=== PATIENT | female | born 1995 | race Caucasian/White ===

== ENCOUNTER 2021-05-22 23:41 | Emergency (ER) | payer MEDICAID, OTHER ==
[~2021-05-22] VITALS: Ht 162.6 cm; Wt 65.8 kg
--- NOTE | 2021-05-23 00:21 | NUR ---
DR. CACERES AT BEDSIDE, MSE IN PROGRESS.
[2021-05-23] MEDS ORDERED: diphenhydrAMINE 50 MG/1 ML VIAL IV ONE (00:30)
[2021-05-23] MEDS ORDERED: KETOROLAC TROMETHAMINE 30 MG INJ IVP ONE (00:30)
[2021-05-23] MEDS ORDERED: IV NS 1000 ML 1,000 ML IV ONE (00:30)
[2021-05-23] MEDS ORDERED: METOCLOPRAMIDE HCL 10 MG/2 ML VIAL IV ONE (00:30)
[2021-05-23] MEDS ORDERED: diphenhydrAMINE 50 MG/1 ML VIAL ONE (00:43)
[2021-05-23] MEDS ORDERED: METOCLOPRAMIDE HCL 10 MG/2 ML VIAL ONE (00:43)
[2021-05-23] MEDS ORDERED: KETOROLAC TROMETHAMINE 30 MG INJ ONE (00:43)
[2021-05-23 00:49] LABS: *URINE HCG, QUAL NEGATIVE (NEGATIVE)
[2021-05-23] MEDS ORDERED: NAPR-1164 PO (01:41)
[2021-05-23] MEDS ORDERED: SUMA100T16 PO (01:41)
[2021-05-23] MEDS ORDERED: PROC-11 PO (01:41)
--- NOTE | 2021-05-23 02:06 | NUR ---
Patient discharged to home in stable condition. Written and verbal after care instructions given. Patient verbalizes understanding of instructions. Stressed follow up or return to ER for worsening s/s. Steady gait, no changes in LOC. No SOB or labored breathing. Denied n/v/d. No headache or dizziness.
[2021-05-23 02:19] VITALS: BP 127/76
== END 2021-05-23 02:19 | disposition home or self-care (01) ==
LOC: ER 23:44
DX: G43.909 Migraine, unspecified, not intractable, without status migrainosus (principal); U07.1 COVID-19
CPT/HCPCS: 84703; 87426; 96361; 96374; 96375; 99284; J1200; J1885; J2765; A4663; J7030

== ENCOUNTER 2024-08-26 02:42 | Emergency (ER) | payer SELFPAY ==
[~2024-08-26] VITALS: Ht 165.1 cm; Wt 59.0 kg
[~2024-08-26 02:42] MED LIST: NAPR-1164 PO; PROC-11 PO; SUMA100T16 PO
[2024-08-26] MEDS ORDERED: KETOROLAC TROMETHAMINE 30 MG INJ ONE (03:17)
[2024-08-26] MEDS: KETOROLAC TROMETHAMINE 30 MG INJ IM ONE (03:27)
[2024-08-26 03:38] LABS: *BILIRUBIN,URIN 1+ (NEGATIVE); *BLOOD, URINE 2+ (NEGATIVE); *CLARITY,URINE CLEAR (CLEAR); *COLOR,URINE YELLOW (YELLOW); *KETONES,URINE 1+ (NEGATIVE); *PROTEIN,URINE TRACE (NEGATIVE); *UROBILINOGEN,URINE 0.2 E.U./dl (NORMAL); LEUKOCYTE ESTERASE ,URINE NEGATIVE (NEGATIVE); NITRITE, URINE NEGATIVE (NEGATIVE); UGLUCOSE NEGATIVE (NEGATIVE)
[2024-08-26 03:43] LABS: *URINE HCG, QUAL NEGATIVE (NEGATIVE)
[2024-08-26 03:52] LABS: WBC,URINE 0-3 /HPF (0-3)
[2024-08-26 03:53] LABS: BACTERIA,URINE FEW /HPF (NONE SEEN); MUCUS,URINE FEW /LPF (0-FEW); SQUAMOUS EPITHELIAL CELL,UR FEW /HPF (NONE SEEN)
[2024-08-26 04:03] LABS: *AMPHETAMINE, URINE NEGATIVE (NEGATIVE); *BARBITURATE, URINE NEGATIVE (NEGATIVE); *BENZODIAZEPINE, URINE NEGATIVE (NEGATIVE); *CANNABINOID, URINE POSITIVE (NEGATIVE); *COCCAINE, URINE NEGATIVE (NEGATIVE); *OPIATE, URINE NEGATIVE (NEGATIVE); *PHENCYCLIDINE SCREEN,URINE NEGATIVE (NEGATIVE); FENTANYL, URINE NEGATIVE (NEGATIVE)
[2024-08-26] MEDS ORDERED: CYCLOBENZAPRINE HCL 10 MG TABLET ONE (06:27)
[2024-08-26] MEDS: CYCLOBENZAPRINE HCL 10 MG TABLET PO ONE (06:30)
[2024-08-26] MEDS: predniSONE 20 MG TABLET PO ONE (06:32)
[2024-08-26] MEDS ORDERED: predniSONE 20 MG TABLET ONE (06:32)
[2024-08-26] MEDS ORDERED: NITR100C6 PO (06:36)
[2024-08-26] MEDS ORDERED: GABA-532 PO (06:36)
[2024-08-26 07:33] VITALS: BP 108/65; O2SAT 99
== END 2024-08-26 07:33 | disposition home or self-care (01) ==
LOC: ER 02:44
DX: M54.50 Low back pain, unspecified (principal); M79.605 Pain in left leg; F19.10 Other psychoactive substance abuse, uncomplicated; Z79.899 Other long term (current) drug therapy; Z87.891 Personal history of nicotine dependence
CPT/HCPCS: 99285; 72131; 84703; 73700; 96372; 80307; 81001; J1885; J7512; A4606; A4663